=== PATIENT | female | born 1930 | race Caucasian/White ===

== ENCOUNTER 2016-06-05 18:48 | Emergency (ER) | payer MEDICARE, OTHER ==
[~2016-06-05 18:48] MED LIST: AMARYL2 PO; APRES10B PO; ASAB PO; BARRIER CREAM TOP; CELEBREX2 PO; DOCUSOFT S100 MG PO; DSS PO; ELIQUIS 5 MG TAB5 MG PO; ENDOCET1 TA1 PO; FLECAINIDE50 MG PO; FLONASE NAS; FLORASTOR250 MG PO; FRESHKOTE; FRESHKOTE OPH; GLUCOV1.25 PO; GLUCPH PO; HALF81 PO; ICY HOT16 % TOP; ICY HOT51 TOP; IMDUR30 PO; IMDUR60 PO; IRON PO; IRON325 MG PO; KADIAN10 MG PO; KADIANSR50 PO; LAM250 PO; LOP25 PO; MSCONT15 PO; NORV25 PO; NORV5 PO; OMNICEF300 PO; PERCOCET1 TA2 PO; PRILO PO; SILVADENE1 % TOP; STOOL SOFTEN100 MG PO; TOPXL25 PO; VITAMIN D PO; VITAMIN D1000 UNI1 PO; VITAMIN D31000 UNIT PO; VITAMIN D400 UNI1 PO; ZANAFLEX2 MG PO; ZESTORETIC1 TA1 PO; ZOCOR40 PO
[2016-06-06 00:20] LABS: BASOPHILS 0.3 %; BASOPHILS ABSOLUTE 0.02 10/3/uL (0.0-0.16); EOSINOPHILS 4.2 %; EOSINOPHILS ABSOLUTE 0.25 10/3/uL (0.0-0.53); HEMATOCRIT 37.1 % (36.0-48.0); LYMPHOCYTES 25.9 %; LYMPHOCYTES ABSOLUTE 1.54 10/3/uL (0.67-4.30); MEAN CORPUS HGB CONC 32.3 g/dL (32.0-36.0); MEAN CORPUSCULAR HEMOGLOB 30.1 pg (26.0-34.0); MEAN PLATELET VOLUME 10.8 fL (9.2-13.0); MONOCYTES 10.6 %; MONOCYTES ABSOLUTE 0.63 10/3/uL (0.21-1.20); NEUTROPHILS ABSOLUTE 3.51 10/3/uL (2.02-8.40); PLATELET COUNT 159 10/3/uL (150-400); RBC DISTRIBUTION WIDTH 13.8 % (12.0-16.0); RED CELL COUNT 3.99 10/6/uL (4.0-5.6)
[2016-06-06 00:23] LABS: ER CBC TAT 0 Hrs 08 MinsNP; MANUAL DIFF NO %
[2016-06-06 00:43] LABS: A/G RATIO 0.8 (0.7-1.9); ALBUMIN 3.1 G/DL (3.5-5.0); ALKALINE PHOSPHATASE 71 U/L (45-117); CHLORIDE, SERUM 108 MMOL/L (96-112); CREATININE 1.01 MG/DL (0.55-1.02); GFR AFRICAN AMERICAN 58 ML/MIN (>=60); GFR NON AFRICAN AMERICAN 50 ML/MIN (>=60); GLOBULIN 3.9 G/DL (2.5-4.1); POTASSIUM, SERUM 4.1 MMOL/L (3.5-5.3); SGOT(AST) 12 U/L (5-40); SGPT(ALT) 14 U/L (5-65); SODIUM, SERUM 146 MMOL/L (135-148); TOTAL BILIRUBIN 0.3 MG/DL (0-1.2)
[2016-06-06 00:45] LABS: BUN (BLOOD UREA NITROGEN) 17 MG/DL (6-23); CO2 (CARBON DIOXIDE) 28 MMOL/L (24-34); GLUCOSE, SERUM 184 MG/DL (60-99)
[2016-07-02] MEDS ORDERED: GLUCPH PO (23:19)
[2016-07-02] MEDS ORDERED: IMDUR60 PO (23:19)
[2016-07-02] MEDS ORDERED: ASAB PO (23:20)
[2016-07-02] MEDS ORDERED: PRILO PO (23:20)
[2016-07-02] MEDS ORDERED: BIOFREEZE TOP (23:20)
[2016-07-02] MEDS ORDERED: LIPITOR20 PO (23:21)
[2016-07-02] MEDS ORDERED: PERCOCET 7.5/321 TAB PO (23:21)
[2016-07-02] MEDS ORDERED: TOPXL25 PO ×2 (23:22)
[2016-07-02] MEDS ORDERED: ZANAFLEX2 MG PO ×2 (23:22→23:23)
[2016-07-02] MEDS ORDERED: NEUR100 PO (23:23)
[2016-07-02] MEDS ORDERED: SYSTANE OPH (23:24)
[2016-07-02] MEDS ORDERED: BARRIER CREAM TOP (23:24)
[2016-07-03] MEDS ORDERED: CORDARONE PO (10:44)
[2016-07-06] MEDS ORDERED: IMDUR30 PO (09:31)
[2016-07-06] MEDS ORDERED: TOPXL50 PO (09:32)
== END 2016-06-06 02:18 | disposition home or self-care (01) ==
LOC: ER 18:48
PROVIDERS: Nurse Practitioner Acute Care
DX: E11.69 Type 2 diabetes mellitus with other specified complication (principal); S91.104A Unspecified open wound of right lesser toe(s) without damage to nail, initial encounter; I48.91 Unspecified atrial fibrillation; Z79.899 Other long term (current) drug therapy; Z79.82 Long term (current) use of aspirin
CPT/HCPCS: 73630-RT; 80053; 85025; 87070; 87205; 99283